=== PATIENT | female | born 1960 ===

== ENCOUNTER → 2017-03-09 | Outpatient (CLI) | payer BC ==
--- NOTE | 2017-03-10 00:42 | DI ---
US BRST U/L OR B/L,03/09/2017 12:53 PM: Clinical History: Bilateral breast masses. Previous Exam: Mammogram performed in February 24 Findings: Bilateral sonography was performed of both breasts demonstrating a solid hypoechoic homogeneous mass within the right breast measuring 1.6 x 1.4 x 1.0 cm. The left breast demonstrates multiple simple cyst too numerous to count. Impression: Solid mass within the right upper breast requiring biopsy for further evaluation. BI-RADS: 4: Suspicious abnormality
== END ==
LOC: MAMMO 12:47
PROVIDERS: ATTEND Family Medicine
DX: R92.8 Other abnormal and inconclusive findings on diagnostic imaging of breast (principal)
CPT/HCPCS: 76641

== ENCOUNTER → 2017-03-17 | Outpatient (CLI) | payer BC ==
--- NOTE | 2017-03-17 11:48 | DI ---
MAMMO U/L DIAGNOSTIC,03/17/2017 10:53 AM: Clinical History: Right breast clip placement. Previous Exam: None at this facility. Findings: CC and MLO views of the right breast are obtained, and demonstrate a clip within a well-circumscribed mass within the right upper medial breast. This corresponds with the abnormality on ultrasound. Impression: Successful placement of a right breast clip. Pathology pending. BI-RADS: IV Suspicious abnormality.
--- NOTE | 2017-03-17 11:48 | DI ---
US GDE NDL PLCMNT BX/ASP/INJ,03/17/2017 9:52 AM: Clinical History: Suspicious right breast mass. Previous Exam: None at this facility. Procedure: Risks, benefits and alternatives were explained to the patient and informed written consen t obtained. The patient was placed supine on the sonography table in the right breast prepped and draped in usual sterile fashion. 1% lidocaine was used for local anesthesia. A small skin incision was made with an 11 blade scalpel. Under sonographic guidance, a single biopsy through the mass was taken. A clip was then placed within the mass. The patient tolerated the procedure well and was sent to mammography for visualization of clip placem ent. Findings: 2 views are obtained one during the biopsy and wondering clip placement. Impression: Successful right breast biopsy. Pathology pending.
== END ==
LOC: US 09:48
PROVIDERS: ATTEND Family Medicine
DX: R92.8 Other abnormal and inconclusive findings on diagnostic imaging of breast (principal)
CPT/HCPCS: 19083; 76942; G0206